=== PATIENT | female | born 1955 | race African-American/Black ===

== ENCOUNTER 2023-03-05 12:09 | Emergency (ER) | payer OTHER ==
[~2023-03-05] VITALS: Ht 160 cm; Wt 75.0 kg
[2023-03-05 12:17] VITALS: O2SAT 99
[2023-03-05] MEDS ORDERED: KETOROLAC 60MG/2ML VIAL IM ONE (17:15)
[2023-03-05 17:19] VITALS: BP 123/70
[2023-03-05 17:29] VITALS: PULSE 139; RESP 18
[2023-03-05] MEDS ORDERED: CYCL10TA21 MT (17:32)
[2023-03-05] MEDS ORDERED: IBUP-2030 MT (17:32)
== END 2023-03-05 17:30 | disposition home or self-care (01) ==
LOC: ER 12:50
DX: M79.605 Pain in left leg (principal); M79.652 Pain in left thigh; I10 Essential (primary) hypertension; Z90.710 Acquired absence of both cervix and uterus
CPT/HCPCS: 99283; 73552; 96372; J1885